=== PATIENT | female | born 1950 | race Caucasian/White ===

== ENCOUNTER 2018-01-07 08:00 | Outpatient (CLI) | payer MEDICARE ==
[2018-01-07 13:01] LABS: BASOPHILS % (AUTO) 0.9 %; EOSINOPHILS # (AUTO) 0.1 10^3/uL (0.0-0.7); EOSINOPHILS % (AUTO) 4.4 %; HGB - HEMOGLOBIN 14.5 g/dL (12.0-16.0); LYMPHOCYTES # (AUTO) 1.2 10^3/uL (1.5-3.5); LYMPHOCYTES % (AUTO) 39.6 %; MEAN CORPUSCULAR HEMOGLOBIN 31.6 pg (27.0-31.0); MEAN CORPUSCULAR HGB CONC 34.9 g/dL (32.0-36.0); MEAN CORPUSCULAR VOLUME 90.4 fL (81.0-99.0); MEAN PLATELET VOLUME 7.6 fL (7.9-10.8); MONOCYTES # (AUTO) 0.3 10^3/uL (0.0-1.0); MONOCYTES % (AUTO) 10.8 %; NEUTROPHILS # (AUTO) 1.3 10^3/uL (1.5-6.6); NEUTROPHILS % (AUTO) 44.3 %; PLT - PLATELET COUNT 212 10^3/uL (130-450); RED CELL DISTRIBUTION WIDTH 12.7 % (12.0-15.0)
[2018-01-07 13:30] LABS: ALBUMIN 4.3 g/dL (3.2-5.5); ALBUMIN/GLOBULIN RATIO 1.5 (1.0-2.2); ALKALINE PHOSPHATASE 50 IU/L (42-121); ALT ALANINE AMINOTRANSFERASE 22 IU/L (10-60); AST ASPARTATE AMINOTRANSFERASE 29 IU/L (10-42); BILIRUBIN,TOTAL 0.7 mg/dL (0.2-1.0); BUN - BLOOD UREA NITROGEN 18 mg/dL (6-20); CALCIUM 9.2 mg/dL (8.5-10.3); CARBON DIOXIDE - CO2 27 mmol/L (21-32); CHLORIDE 100 mmol/L (101-111); CHOLESTEROL 234 mg/dL; CREATININE 0.7 mg/dL (0.4-1.0); GFR - MDRD 84 (>89); GLUCOSE 96 mg/dL (70-100); HDL CHOLESTEROL 59 mg/dL; LDL CHOLESTEROL,CALCULATED 154 mg/dL; LDL/HDL RATIO 2.6 (<4.4); SODIUM 139 mmol/L (135-145); TOTAL PROTEIN 7.1 g/dL (6.7-8.2); VLDL CHOLESTEROL 21 mg/dL
== END 2018-01-07 08:01 | disposition home or self-care (01) ==
LOC: LAB.N 08:00
PROVIDERS: ATTEND Family Medicine
DX: E89.40 Asymptomatic postprocedural ovarian failure (principal); M81.0 Age-related osteoporosis without current pathological fracture; Z51.81 Encounter for therapeutic drug level monitoring
CPT/HCPCS: 36415; 80053; 80061; 82306; 83721; 84443; 85025

== ENCOUNTER 2018-01-07 08:18 | Outpatient (CLI) | payer MEDICARE ==
--- NOTE | 2018-01-07 11:42 | XRAY Report ---
THREE VIEW LEFT ANKLE: 01/07/2018 CLINICAL INDICATION: Osteoporosis. FINDINGS: AP, lateral, and oblique views of the left ankle demonstrate mild osteoarthritis. There is no evidence of acute fracture or dislocation. No effusion is present. IMPRESSION: MILD OSTEOARTHRITIS. TD: 01/07/2018 11:41
== END 2018-01-07 08:19 | disposition home or self-care (01) ==
LOC: DI.N 08:18
PROVIDERS: ATTEND Family Medicine
DX: M19.072 Primary osteoarthritis, left ankle and foot (principal); E89.40 Asymptomatic postprocedural ovarian failure; M81.0 Age-related osteoporosis without current pathological fracture; Z51.81 Encounter for therapeutic drug level monitoring
CPT/HCPCS: 36415; 80053; 80061; 82306; 83721; 84443; 85025

== ENCOUNTER 2018-07-09 12:55 | Outpatient (CLI) | payer MEDICARE, BC ==
--- NOTE | 2018-07-13 10:13 | DEXA Report ---
Procedure Date: 07/09/2018 Accession Number: [id number] / [id number] Procedure: DEX - Dexa Spine and/or Hip CPT Code: FULL RESULT: EXAM: DUAL EMISSION X-RAY ABSORPTIOMETRY (DXA) SCAN EXAM DATE: 07/09/2018 02:09 PM. CLINICAL HISTORY: Family history of osteoporosis (mother and sister). History of breast cancer. History of osteoporosis with use of Fosamax and Boniva . COMPARISON: None available. ADDITIONAL PATIENT INFORMATION: Postmenopausal. History of breast CA, steroid use, hormone replacement therapy. History of low bone mineral density with medication use. No history of injury or surgery to routine scan sites. MODALITY INFORMATION: Central DEXA bone densitometry on a [facility] system ([id number]). FRAX version 3.08 utilized for probability calculation of 10 year fracture risk. TECHNIQUE: Lumbar spine, left hip evaluated. TECHNIQUE LIMITATIONS/EXCLUSIONS: None FINDINGS: Lumbar Spine: Bone mineral density 0.986 g/sq cm, T-score -1.6, Z-score -0.1. Femoral Neck: Bone mineral density 0.963 g/sq cm, T-score -0.5, Z-score 0.9. Total Hip: Bone mineral density 1.034 g/sq cm, T-score 0.2, Z-score 1.4. IMPRESSION: Osteopenia. Fracture risk is increased. World Health Organization (WHO) Reporting guidelines (based on lowest BMD) for postmenopausal and perimenopausal women, men age 50 years and older: Normal: T-score at or greater than -1.0 Osteopenia: T-score between -1.1 to -2.4 Osteoporosis: T-score at or less than -2.5 National Osteoporosis Foundation/International Society for Clinical Densitometry recommended use of WHO Fracture risk assessment tool (FRAX): Untreated postmenopausal women or men age 50-90 with low bone mass (T score between -1.1 to -2.4), no prior hip or vertebral fracture, and an evaluable hip for scan. RADIA
== END 2018-07-09 12:56 | disposition home or self-care (01) ==
LOC: DI 12:55
PROVIDERS: ATTEND Family Medicine
DX: M85.88 Other specified disorders of bone density and structure, other site (principal)
CPT/HCPCS: 77080

== ENCOUNTER 2018-07-20 19:37 | Emergency (ER) | payer MEDICARE, BC ==
--- NOTE | 2018-07-20 20:31 | ED Physician Documentation ---
PD HPI CHEST PAIN - Stated complaint Stated Complaint: CHEST PX - Chief complaint Chief Complaint: Cardiac - History obtained from History obtained from: Patient - History of Present Illness Timing - onset: Today Timing - onset during: Rest Timing - details: Gradual onset, Intermittant Quality: Pressure, Sharp Location: Substernal, Right chest Radiation: Neck Worsened by: No: Exertion, Inspiration, Position Associated symptoms: No: Shortness of air, Diaphoresis, Nausea, Vomiting, Feeling faint / dizzy Recently seen: Not recently seen - Additional information Additional information: Patient is a 67 year old female with a history of breast CA in remission s/p right sided masectomy who is presenting to the emergency department for right sided chest pain. patient states that the pain started this evening at rest. It is sharp in nature and no exertional component to the pain. Patient denies any rash or trauma but has been going to exercise classes. Review of Systems Constitutional: denies: Fever, Chills Cardiac: reports: Chest pain / pressure. denies: Palpitations Respiratory: denies: Dyspnea, Cough, Wheezing GI: denies: Abdominal Pain, Nausea, Vomiting, Constipation, Diarrhea Musculoskeletal: denies: Neck pain, Back pain, Extremity swelling Neurologic: denies: Generalized weakness, Focal weakness PD PAST MEDICAL HISTORY - Allergies Allergies/Adverse Reactions: Allergies Allergy/AdvReac Type Severity Reaction Status Date / Time Sulfa (Sulfonamide AdvReac Nausea Verified 07/20/18 19:51 Antibiotics) Results - Vitals Vitals: Vital Signs - 24 hr 07/20/18 07/20/18 07/20/18 19:43 21:51 22:40 Temperature 36.5 C Heart Rate 65 66 68 Respiratory 16 18 16 Rate Blood Pressure 152/72 H 131/69 H 135/78 H O2 Saturation 100 100 98 07/20/18 23:45 Temperature Heart Rate 66 Respiratory 16 Rate Blood Pressure 138/75 H O2 Saturation 98 Oxygen O2 Source Room air - EKG (time done) 2308 Rhythm: NSR [place]: Normal Intervals: Normal TN QRS: Normal Compare to prior EKG: Unchanged from prior EKG - Labs Labs: Laboratory Tests 07/20/18 07/20/18 07/20/18 20:47 20:47 20:47 WBC 4.1 L RBC 4.83 Hgb 15.4 Hct 43.5 MCV 90.2 MCH 31.9 H MCHC 35.4 RDW 12.6 Plt Count 213 MPV 7.3 L Neut # (Auto) 2.5 Lymph # (Auto) 1.2 L Towner # (Auto) 0.3 Eos # (Auto) 0.1 Baso # (Auto) 0.0 Absolute Nucleated RBC 0.00 Nucleated RBC % 0.1 Sodium Potassium Chloride Carbon Dioxide Anion Gap BUN Creatinine Estimated GFR (MDRD) Glucose Calcium Total Bilirubin AST ALT Alkaline Phosphatase Troponin I < 0.04 B-Natriuretic Peptide 19 Total Protein Albumin Globulin Albumin/Globulin Ratio Lipase 07/20/18 07/20/18 20:47 23:07 WBC RBC Hgb Hct MCV MCH MCHC RDW Plt Count MPV Neut # (Auto) Lymph # (Auto) Towner # (Auto) Eos # (Auto) Baso # (Auto) Absolute Nucleated RBC Nucleated RBC % Sodium 138 Potassium 3.6 Chloride 101 Carbon Dioxide 26 Anion Gap 11.0 BUN 15 Creatinine 0.7 Estimated GFR (MDRD) 84 L Glucose 98 Calcium 9.7 Total Bilirubin 0.8 AST 33 ALT 24 Alkaline Phosphatase 64 Troponin I < 0.04 B-Natriuretic Peptide Total Protein 7.5 Albumin 4.6 Globulin 2.9 Albumin/Globulin Ratio 1.6 Lipase 42 - Rads (name of study) chest x-ray Radiology: Final report received (no acute disease process) PD MEDICAL DECISION MAKING - ED course Complexity details: reviewed old records, reviewed results, re-evaluated patient , considered differential, d/w patient ED course: Patient was seen and examined at bedside. patient was well appearing and had no active chest pain. ekg was performed and was normal sinus. labs were drawn and chest x-ray was ordered. patient's diagnostics including serial troponins remained negative. patient had a heart score of 2 and required no further work up at this time. patient was stable for discharge with outpatient follow up. - Sepsis Event Vital Signs: Vital Signs - 24 hr 07/20/18 07/20/18 07/20/18 19:43 21:51 22:40 Temperature 36.5 C Heart Rate 65 66 68 Respiratory 16 18 16 Rate Blood Pressure 152/72 H 131/69 H 135/78 H O2 Saturation 100 100 98 07/20/18 23:45 Temperature Heart Rate 66 Respiratory 16 Rate Blood Pressure 138/75 H O2 Saturation 98 Oxygen O2 Source Room air Departure - Departure Disposition: 01 Home, Self Care Clinical Impression: Atypical chest pain Condition: Good Instructions: ED Chest Pain Atypical Unkn Cause Follow-Up: Orlando Carrillo MD [Primary Care Provider] - Tomorrow Comments: Your diagnostics today were within normal limits. there are no significant abnormalities on your blood work, ekg or chest x-ray. That would indicate that it is less likely cardiac in nature but this is only a snapshot in time. I would recommend following up with your doctor for an echocardiogram and a stress test. You should return to the emergency department at any time for new , worsening or uncontrollable symptoms. Discharge Date/Time: 07/20/18 23:45
[2018-07-20 20:53] LABS: BASOPHILS % (AUTO) 0.8 %; EOSINOPHILS # (AUTO) 0.1 10^3/uL (0.0-0.7); EOSINOPHILS % (AUTO) 1.7 %; HGB - HEMOGLOBIN 15.4 g/dL (12.0-16.0); LYMPHOCYTES # (AUTO) 1.2 10^3/uL (1.5-3.5); LYMPHOCYTES % (AUTO) 29.9 %; MEAN CORPUSCULAR HEMOGLOBIN 31.9 pg (27.0-31.0); MEAN CORPUSCULAR HGB CONC 35.4 g/dL (32.0-36.0); MEAN CORPUSCULAR VOLUME 90.2 fL (81.0-99.0); MEAN PLATELET VOLUME 7.3 fL (7.9-10.8); MONOCYTES # (AUTO) 0.3 10^3/uL (0.0-1.0); MONOCYTES % (AUTO) 8.2 %; NEUTROPHILS # (AUTO) 2.5 10^3/uL (1.5-6.6); NEUTROPHILS % (AUTO) 59.4 %; PLT - PLATELET COUNT 213 10^3/uL (130-450); RED BLOOD COUNT 4.83 10^6/uL (4.20-5.40); RED CELL DISTRIBUTION WIDTH 12.6 % (12.0-15.0); WHITE BLOOD COUNT 4.1 x10^3/uL (4.8-10.8)
--- NOTE | 2018-07-20 21:01 | XRAY Report ---
Reason: right sided chest pain Procedure Date: 07/20/2018 Accession Number: [id number] / [id number] Procedure: XR - Chest 1 View X-Ray CPT Code: 12730 FULL RESULT: EXAM: CHEST RADIOGRAPHY EXAM DATE: 07/20/2018 08:44 PM. CLINICAL HISTORY: Right sided chest pain COMPARISON: None. TECHNIQUE: 1 view. FINDINGS: Lungs/Pleura: No focal opacities evident. No pleural effusion. No pneumothorax. Mediastinum: Within exam limitations, the cardiomediastinal contour is normal. Other: None. IMPRESSION: Negative for an acute cardiopulmonary process. RADIA
[2018-07-20 21:49] LABS: ALBUMIN 4.6 g/dL (3.2-5.5); ALBUMIN/GLOBULIN RATIO 1.6 (1.0-2.2); BILIRUBIN,TOTAL 0.8 mg/dL (0.2-1.0); CALCIUM 9.7 mg/dL (8.5-10.3); CREATININE 0.7 mg/dL (0.4-1.0); TOTAL PROTEIN 7.5 g/dL (6.7-8.2)
[2018-07-20 23:46] VITALS: BP 138/75
== END 2018-07-20 23:45 | disposition home or self-care (01) ==
LOC: ED 19:37
DX: R07.89 Other chest pain (principal); Z85.3 Personal history of malignant neoplasm of breast; Z90.11 Acquired absence of right breast and nipple
CPT/HCPCS: 36415; 71045; 80053; 83690; 83880; 84484; 85025; 93005; 99283

== ENCOUNTER 2018-08-14 10:07 | Outpatient (CLI) | payer MEDICARE, BC ==
--- NOTE | 2018-08-18 14:47 | Mammography Report ---
Reason: SCREENING MAMMO Procedure Date: 08/14/2018 Accession Number: [id number] / [id number] Procedure: JD - Screening Mammo Dig LT CPT Code: FULL RESULT: EXAM: Screening Mammo Dig LT DATE: 08/14/2018 11:15 AM CLINICAL HISTORY: 67-year-old female with personal history of breast cancer status post mastectomy and chemoradiation on the right side TECHNIQUE: Left CC and MLO implant displaced views as well as left CC and MLO views were obtained. COMPARISON: 07/02/2017, 07/01/2016, 06/27/2015, 06/23/2014. FINDINGS: The breast demonstrates scattered fibroglandular densities. A breast implant is identified. No suspicious masses, clustered microcalcifications, or regions of architectural distortion are identified. IMPRESSION: Benign findings RECOMMENDATION: Routine annual screening unless otherwise clinically indicated. BIRADS CATEGORY 2: Benign findings STANDARD QUALIFYING STATEMENTS: 1. This examination was not reviewed with the aid of Computer-Aided Detection (CAD). 2. A negative or benign imaging report should not delay biopsy if clinically suspicious findings are present. Consider surgical consultation if warrented. More than 5% of cancers are not identified by imaging. 3. Dense breasts may obscure an underlying neoplasm.
== END 2018-08-14 10:08 | disposition home or self-care (01) ==
LOC: DI 10:07
PROVIDERS: ATTEND Family Medicine
DX: Z12.31 Encounter for screening mammogram for malignant neoplasm of breast (principal); Z08 Encounter for follow-up examination after completed treatment for malignant neoplasm; Z85.3 Personal history of malignant neoplasm of breast

== ENCOUNTER 2021-05-24 15:32 | Emergency (ER) | payer MEDICARE, BC ==
[2021-05-24] MEDS ORDERED: GLUCAGON 1 MG/ML VIAL IVP STA (15:59)
[2021-05-24] MEDS ORDERED: ALBUTEROL NEB 2.5 MG/3 ML INH STA (16:00)
--- NOTE | 2021-05-24 16:03 | ED Physician Documentation ---
History of Present Illness - Stated complaint Stated Complaint: FO IN THROAT - Chief complaint Chief Complaint: General - Additonal information Additional information: 70-year-old female presents to the emergency department for evaluation of suspected foreign object in her throat or esophagus. She reports trying to swallow her horse pill vitamin and it got stuck. She is unsure if she aspirated or if it is stuck within the esophagus. She has a persistent cough and is now having difficulty breathing and is excessively wheezy. No history of similar in the past. Pt is able to swallow thin liquids. She presents as persistently coughing Past medical history includes hyperlipidemia as well as a history of breast cancer status post radiation and chemotherapy. Review of Systems Constitutional: denies: Fever, Chills Eyes: reports: Reviewed and negative Ears: reports: Reviewed and negative Nose: reports: Reviewed and negative Throat: reports: Dental pain / toothache Cardiac: denies: Chest pain / pressure, Palpitations Respiratory: reports: Dyspnea, Cough, Wheezing GI: reports: Reviewed and negative : reports: Reviewed and negative PD PAST MEDICAL HISTORY - Past Surgical History Past Surgical History: No - Allergies Allergies/Adverse Reactions: Allergies Allergy/AdvReac Type Severity Reaction Status Date / Time Sulfa (Sulfonamide AdvReac Nausea Verified 05/24/21 15:39 Antibiotics) - Social History Does the pt smoke?: No Smoking Status: Never smoker PD ED PE EXPANDED - General General: Alert, In distress - Cardiac Cardiac: Tachy, Radial strong equal, Cap refill < 2 sec - Respiratory Respiratory: Clear to ausultation marie, Distress, Other (persistent cough). No: Labored - Abdomen Abdomen: Normal Bowel sounds. No: Tender to palpation - Derm Derm: Normal color, Warm and dry - Neuro Neuro: Alert and Oriented X 3, CNII-XII intact - GCS Eye Opening: Spontaneous Motor: Obeys Commands Verbal: Oriented Total: 15 Results - Vitals Vitals: Vital Signs - 24 hr 05/24/21 15:39 Temperature 36.5 C Heart Rate 100 Respiratory 16 Rate Blood Pressure 176/90 H O2 Saturation 94 Oxygen O2 Source Room air - Labs Labs: Laboratory Tests 05/24/21 05/24/21 16:19 16:19 WBC 5.7 RBC 4.74 Hgb 14.8 Hct 43.1 MCV 90.9 MCH 31.2 H MCHC 34.3 RDW 11.9 L Plt Count 229 MPV 9.3 Neut # (Auto) 2.8 Lymph # (Auto) 2.0 [place] # (Auto) 0.6 Eos # (Auto) 0.2 Baso # (Auto) 0.1 Absolute Nucleated RBC 0.00 Nucleated RBC % 0.0 Sodium 137 Potassium 3.3 L Chloride 100 L Carbon Dioxide 26 Anion Gap 11.0 BUN 21 H Creatinine 0.7 Estimated GFR (MDRD) 83 L Glucose 126 H Calcium 9.6 Total Bilirubin 0.9 AST 36 ALT 32 Alkaline Phosphatase 82 Total Protein 7.6 Albumin 4.7 Globulin 2.9 Albumin/Globulin Ratio 1.6 Lipase 27 PD MEDICAL DECISION MAKING - ED course Complexity details: reviewed results, re-evaluated patient, d/w patient ED course: 70-year-old female presents the emergency department for evaluation of persistent choking episode. Approximately 1 hour prior to arrival she tried to swallow a very large multivitamin. She began coughing immediately and has persisted and coughing for at least 90 minutes. She is able to tolerate sips of clear liquids but she feels a sensation of something in her mid chest and sternum. When she does cough forcefully enough small bits of vitamin do appear to be coughed up. She does present in moderate distress tachypneic initial saturations 92% on room air with a global respiratory wheeze. My concern is that she is developing upper airway obstruction. Unfortunately we do not have the ability to do bronchoscopy here nor do we have ENT services. Patient was given some viscous lidocaine to swallow which did improve her symptoms moderately. Albuterol was also ordered given the persistent upper airway wheeze. Her saturations remained 92 to 96%. 1640: I have spoken with Dr. Hernandez at [facility]. Patient will be transferred to the emergency department there for ENT evaluation and likely bronchoscopy. Patient is maintaining her airway. She does continue to persistently cough and does cough up small bits of orange vitamin. She is however able to swallow therefore I suspect that this is an upper airway aspiration choking event. Pt transported via ALS. [employer] paperwork completed Departure - Departure Disposition: 02 Transfer Acute Care Hosp Clinical Impression: Aspiration into respiratory tract Qualifiers: Encounter type: initial encounter Qualified Code(s): T17.908A - Unspecified foreign body in respiratory tract, part unspecified causing other injury, initial encounter Choking Qualifiers: Encounter type: initial encounter Qualified Code(s): T17.308A - Unspecified foreign body in larynx causing other injury, initial encounter
[2021-05-24] MEDS ORDERED: LIDOCAINE VISCOUS 2% 15 ML UDC MM STA (16:17)
[2021-05-24 16:31] LABS: BASOPHILS # (AUTO) 0.1 10^3/uL (0.0-0.1); BASOPHILS % (AUTO) 0.9 %; EOSINOPHILS # (AUTO) 0.2 10^3/uL (0.0-0.7); EOSINOPHILS % (AUTO) 3.5 %; HCT - HEMATOCRIT 43.1 % (37.0-47.0); HGB - HEMOGLOBIN 14.8 g/dL (12.0-16.0); LYMPHOCYTES % (AUTO) 34.9 %; MEAN CORPUSCULAR HEMOGLOBIN 31.2 pg (27.0-31.0); MEAN CORPUSCULAR HGB CONC 34.3 g/dL (32.0-36.0); MEAN CORPUSCULAR VOLUME 90.9 fL (81.0-99.0); MEAN PLATELET VOLUME 9.3 fL (7.9-10.8); MONOCYTES # (AUTO) 0.6 10^3/uL (0.0-1.0); MONOCYTES % (AUTO) 10.6 %; NEUTROPHILS # (AUTO) 2.8 10^3/uL (1.5-6.6); NEUTROPHILS % (AUTO) 49.9 %; PLT - PLATELET COUNT 229 10^3/uL (130-450); RED BLOOD COUNT 4.74 10^6/uL (4.20-5.40); RED CELL DISTRIBUTION WIDTH 11.9 % (12.0-15.0); WHITE BLOOD COUNT 5.7 x10^3/uL (4.8-10.8)
--- NOTE | 2021-05-24 16:31 | XRAY Report ---
PROCEDURE: Chest 2 View X-Ray INDICATIONS: CHEST PAIN TECHNIQUE: 2 view(s) of the chest. COMPARISON: 08/20/2018. FINDINGS: Surgical changes and devices: None. Lungs and pleura: No pleural effusions or pneumothorax. Lungs are clear. Mediastinum: Mediastinal contours are normal. Heart size is normal. Bones and chest wall: No suspicious bony abnormalities. Soft tissues appear unremarkable. IMPRESSION: No acute cardiopulmonary disease process. Reviewed by: Karla Quintanilla MD, PhD on 05/24/2021 4:29 PM PDT Approved by: Karla Quintanilla MD, PhD on 05/24/2021 4:29 PM PDT Station ID: [id number]
[2021-05-24 16:43] LABS: ALBUMIN 4.7 g/dL (3.2-5.5); ALBUMIN/GLOBULIN RATIO 1.6 (1.0-2.2); BILIRUBIN,TOTAL 0.9 mg/dL (0.2-1.0); CALCIUM 9.6 mg/dL (8.5-10.3); CREATININE 0.7 mg/dL (0.4-1.0); POTASSIUM 3.3 mmol/L (3.5-5.0); TOTAL PROTEIN 7.6 g/dL (6.7-8.2)
[2021-05-24 18:16] VITALS: BP 160/90
== END 2021-05-24 16:56 | disposition short-term general hospital (02) ==
LOC: ED 15:32
DX: T17.908A Unspecified foreign body in respiratory tract, part unspecified causing other injury, initial encounter (principal); T17.308A Unspecified foreign body in larynx causing other injury, initial encounter; X58.XXXA Exposure to other specified factors, initial encounter; Y93.89 Activity, other specified
CPT/HCPCS: 36415; 80053; 83690; 85025; 96374; 99284

== ENCOUNTER 2021-05-24 16:42 | Outpatient (CLI) | payer MEDICARE, BC | END 2021-05-24 16:43 | disposition short-term general hospital (02) | LOC: EMS 16:42 | PROVIDERS: ATTEND Registered Nurse | DX: T18.198A Other foreign object in esophagus causing other injury, initial encounter (principal); R05 Cough | CPT/HCPCS: A0425; A0428 ==